=== PATIENT | male | born 1955 | race Caucasian/White ===

== ENCOUNTER 2022-09-16 21:52 | Emergency (ER) | payer OTHER ==
[~2022-09-16] VITALS: Ht 180.3 cm; Wt 107.5 kg
--- NOTE | 2022-09-16 22:15 | NUR ---
PT AMB TO [facility] WITH .
--- NOTE | 2022-09-16 22:18 | NUR ---
Patient is A/Ox4, able to ambulate with steady gait. The patient came for c/o left elbow pain and swelling started this morning. The patient denies any acute trauma or injury. The patient is able to move his left upper extremity without difficulty. Patient only complains of pain when he touches it.
--- NOTE | 2022-09-16 22:21 | NUR ---
ERMD at bedside for MSE.
[2022-09-16] MEDS ORDERED: IBUP-1490 PO (22:28)
[2022-09-16] MEDS ORDERED: IBUPROFEN 600 MG TABLET ONE (22:30)
[2022-09-16] MEDS ORDERED: IBUPROFEN 600 MG TABLET PO ONE (22:30)
--- NOTE | 2022-09-16 22:36 | NUR ---
Patient discharged to home in stable condition. Written and verbal after care instructions given. Patient verbalizes understanding of instructions. Stressed follow up or return to ER for worsening s/s. Patient A/Ox4, able to ambulate with steady gait. All belongings returned to patient prior to departure.
[2022-09-16 22:37] VITALS: BP 123/74; O2SAT 98
== END 2022-09-16 22:37 | disposition home or self-care (01) ==
LOC: ER 21:54
DX: M70.32 Other bursitis of elbow, left elbow (principal); Z79.1 Long term (current) use of non-steroidal anti-inflammatories (NSAID); Y93.89 Activity, other specified
CPT/HCPCS: A4663